=== PATIENT | male | born 1930 | race Caucasian/White ===

== ENCOUNTER 2017-07-02 10:23 | Emergency (ER) | payer MEDICARE, OTHER ==
--- NOTE | 2017-07-02 10:45 | ED Physician Documentation ---
PD HPI Fall - Stated complaint Stated Complaint: GLF/FOREHEAD LAC - Chief complaint Chief Complaint: Trauma Hd/Nk - History obtained from History obtained from: Patient - History of Present Illness Mechanism of injury: Lost balance (has had balance issues, with occasional falls despite walker and cane use.) Fall distance: Standing position Where injury occurred: Home Timing - onset: Today (this morning) Injury(ies) location: Face (fell to left and struck left eyebrow area, left chest and left elbow. No LOC, no headache.), Chest, Left Uppper Extremity (elbow ) Associated symptoms: No: LOC, AMS Worsens with: Movement Contributing factors: Anticoagulated (plavix). No: Intoxicated Similar symptoms before: Has not had sx before Recently seen: Not recently seen Review of Systems Constitutional: denies: Fever Eyes: denies: Loss of vision, Decreased vision, Photophobia Nose: denies: Rhinorrhea / runny nose, Congestion Throat: denies: Sore throat Cardiac: reports: Chest pain / pressure (left side, since falling). denies: Palpitations Respiratory: denies: Dyspnea, Cough GI: denies: Abdominal Pain Skin: denies: Abrasion (s) Musculoskeletal: reports: Extremity pain (left elbow posteriorly). denies: Neck pain, Back pain Psychiatric: denies: Depressed Endocrine: denies: Weight loss, Easy bruising / bleeding Immunocompromised: denies: Immunocompromised, Chemotherapy PD PAST MEDICAL HISTORY - Past Medical History Cardiovascular: Hypertension, NM Respiratory: CPAP use Neuro: CVA Musculoskeletal: Osteoarthritis, Hemiplegia - Past Surgical History Ortho: Knee replacement - Present Medications Home Medications: Ambulatory Orders Medication Instructions Recorded Confirmed Aspirin [Aspirin EC] 81 mg PO DAILY 07/02/17 Baclofen 07/02/17 Clopidogrel [Plavix] 75 mg PO DAILY 07/02/17 Cyanocobalamin (Vitamin B-12) 1 tab PO DAILY 07/02/17 [Vitamin B-12] Escitalopram Oxalate [Lexapro] 2.5 tab PO DAILY 07/02/17 HYDROcod/ACETAM 5/325 [[place] 5/325] 1 tab PO 07/02/17 LORazepam [Lorazepam] 1 mg PO 07/02/17 Melatonin 3 mg PO DAILY PM 07/02/17 buPROPion HCl [Bupropion HCl] 75 mg PO DAILY 07/02/17 - Allergies Allergies/Adverse Reactions: Allergies Allergy/AdvReac Type Severity Reaction Status Date / Time promethazine [From Phenergan] Allergy Unknown Verified 07/02/17 11:30 Sulfa (Sulfonamide Allergy Unknown Verified 07/02/17 11:30 Antibiotics) PD ED PE NORMAL - Vitals Vital signs reviewed: Yes - General General: Alert and oriented X 3, No acute distress, Well developed/nourished - HEENT HEENT: PERRL, EOMI, Pharynx benign, Dentition benign, Other (left eyebrow with 1.5 cm laceration that is still bleeding without bandaid on it. Some bruising of eyelid noted. ) - Neck Neck: Supple, no meningeal sign, No bony TTP, No adenopathy - Cardiac Cardiac: RRR, No murmur - Respiratory Respiratory: No respiratory distress, Clear bilaterally, Other (tender left chest wall without crepitance nor defromity.) - Abdomen Abdomen: Soft, Non tender - Back Back: No spinal TTP - Derm Derm: Normal color, Warm and dry - Extremities Extremities: No tenderness to palpate, Normal ROM s pain, Other (left elbow with some swelling and tenderenss but is able to extend and supinate/pronate. No noted effusion. ) - Neuro Neuro: Alert and oriented X 3, risk and insurance consultant 2-12 intact, No motor deficit, No sensory deficit, Normal speech Eye Opening: Spontaneous Motor: Obeys Commands Verbal: Oriented GCS Score: 15 - Psych Psych: Normal mood Results - Vitals Vitals: Oxygen O2 Source Room air - EKG (time done) 10:38 Rate: Rate (enter#) (52) Rhythm: Sinus bradycardia [place]: Normal Intervals: RBBB QRS: Normal Ischemia: Normal ST segments, Non specific changes. No: ST elevation c/w ischemia, ST depression Compare to prior EKG: Unchanged from prior EKG - Labs Labs: Laboratory Tests 07/02/17 07/02/17 10:50 10:50 WBC 6.0 RBC 4.33 L Hgb 13.5 L Hct 38.9 L MCV 89.9 MCH 31.3 H MCHC 34.8 RDW 14.4 Plt Count 269 MPV 6.8 L Neut # 4.4 Lymph # 1.0 L [place] # 0.5 Eos # 0.2 Baso # 0.0 Absolute Nucleated RBC 0.01 Nucleated RBC % 0.1 Sodium 137 Potassium 4.1 Chloride 103 Carbon Dioxide 23 Anion Gap 11.0 BUN 27 H Creatinine 1.1 Estimated GFR (MDRD) 63 L Glucose 137 H Calcium 9.0 Magnesium 2.1 Total Bilirubin 0.5 AST 31 ALT 24 Alkaline Phosphatase 74 Total Protein 6.7 Albumin 3.9 Globulin 2.8 Albumin/Globulin Ratio 1.4 Lipase 22 - Rads (name of study) head CT Radiology: Prelim report reviewed (no ICH) chest CT Radiology: Prelim report reviewed (no noted fractures nor organ injury) left elbow Radiology: Prelim report reviewed (arthritic but no fractures) Procedures - Laceration (location) left eyebrow Length in cm: 1.5 Wound type: Linear, Into subcut fat, Clean Neurovascular status: Motor intact Anesthesia: Lidocaine 1% with epi Wound Preparation: Irrigated copiously NS Skin layer closure: Nylon, Running, Size #-0 - enter number (5) Other: Patient tolerated well, No complications, Neurovascular intact, Dressing applied, Tetanus UTD Complexity: Simple PD MEDICAL DECISION MAKING - ED course Complexity details: reviewed results, considered differential, d/w patient Departure - Departure Disposition: 01 Home, Self Care Clinical Impression: Fall from slip, trip, or stumble Qualifiers: Encounter type: initial encounter Qualified Code(s): W01.0XXA - Fall on same level from slipping, tripping and stumbling without subsequent striking against object, initial encounter Eyebrow laceration Qualifiers: Encounter type: initial encounter Laterality: left Qualified Code(s): S01.112A - Laceration without foreign body of left eyelid and periocular area, initial encounter Chest wall contusion Qualifiers: Encounter type: initial encounter Laterality: left Qualified Code(s): S20.212A - Contusion of left front wall of thorax, initial encounter Elbow contusion Qualifiers: Encounter type: initial encounter Laterality: left Qualified Code(s): S50.02XA - Contusion of left elbow, initial encounter Contusion of head Qualifiers: Encounter type: initial encounter Contusion of head detail: eyelid Laterality: left Qualified Code(s): S00.12XA - Contusion of left eyelid and periocular area , initial encounter Condition: Stable Record reviewed to determine appropriate education?: Yes Instructions: ED Contusion Chest Wall, ED Laceration Facial Sutr Tape Follow-Up: Tomer Enriquez MD [Primary Care Provider] - Comments: It is okay to wash and shower. Clean off the wound twice a day with soap and water, or peroxide and water. Apply some antibiotic ointment to it to keep it moist. Also to watch for signs of infection such as purulence, redness or increasing pain. Return to your primary care or the ER at the specified time for suture removal. Suture removal 8 or 9 days. Continue usual medications. There are no signs of internal injury or fractures on your x-rays. Discharge Date/Time: 07/02/17 13:54
[2017-07-02] MEDS ORDERED: HYDROcod/ACETAM 5/325 MG TABLET PO STA (11:20)
[2017-07-02] MEDS ORDERED: KETOROLAC 15 MG/ML VIAL IVP STA (11:20)
[2017-07-02] MEDS ORDERED: MORPHINE 2 MG/ML CARPUJECT IVP STA (11:21)
[2017-07-02 11:23] LABS: BASOPHILS % (AUTO) 0.7 %; EOSINOPHILS # (AUTO) 0.2 10^3/uL (0.0-0.7); EOSINOPHILS % (AUTO) 2.6 %; HGB - HEMOGLOBIN 13.5 g/dL (14.0-18.0); LYMPHOCYTES % (AUTO) 15.9 %; MEAN CORPUSCULAR HEMOGLOBIN 31.3 pg (27.0-31.0); MEAN CORPUSCULAR HGB CONC 34.8 g/dL (32.0-36.0); MEAN CORPUSCULAR VOLUME 89.9 fL (80.0-94.0); MEAN PLATELET VOLUME 6.8 fL (7.4-11.4); MONOCYTES # (AUTO) 0.5 10^3/uL (0.0-1.0); MONOCYTES % (AUTO) 8.4 %; NEUTROPHILS # (AUTO) 4.4 10^3/uL (1.5-6.6); NEUTROPHILS % (AUTO) 72.4 %; PLT - PLATELET COUNT 269 10^3/uL (130-450); RED BLOOD COUNT 4.33 10^6/uL (4.70-6.10); RED CELL DISTRIBUTION WIDTH 14.4 % (12.0-15.0)
[2017-07-02 11:32] LABS: ALBUMIN 3.9 g/dL (3.2-5.5); ALBUMIN/GLOBULIN RATIO 1.4 (1.0-2.2); BILIRUBIN,TOTAL 0.5 mg/dL (0.2-1.0); CREATININE 1.1 mg/dL (0.6-1.2); MAGNESIUM 2.1 mg/dL (1.7-2.8); TOTAL PROTEIN 6.7 g/dL (6.7-8.2)
[2017-07-02] MEDS ORDERED: IOPAMIDOL-300 100 ML VIAL ONE (12:09)
[2017-07-02] MEDS ORDERED: IOPAMIDOL-300 100 ML VIAL IVP ONE (12:40)
--- NOTE | 2017-07-02 12:51 | CT Report ---
EXAM: CT HEAD EXAM DATE: 07/02/2017 12:32 PM. CLINICAL HISTORY: Fell today, struck head left forehead. COMPARISON: Brain MRI 09/17/2006. TECHNIQUE: Multiaxial CT images were obtained from the foramen magnum to the vertex. Reformats: Coron al. IV contrast: None. In accordance with CT protocol optimization, one or more of the following dose reduction techniques w ere utilized for this exam: automated exposure control, adjustment of mA and/or KV based on patient s ize, or use of iterative reconstructive technique. FINDINGS: Parenchyma: No intraparenchymal hemorrhage. No evidence of mass, midline shift, or CT findings of acu te infarction. Meza-white differentiation is distinct. Diffuse chronic microangiopathic white matter changes are evident. 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 Extraaxial Spaces: Normal for age. No subdural or epidural collections identified. Ventricles: The ventricles and cortical sulci are enlarged, consistent with age-related tissue loss. Sinuses and orbits: Imaged paranasal sinuses, orbits, and mastoids show no significant abnormality. Bones: No evidence of fracture or calvarial defect. Other: Left periorbital soft tissue edema. IMPRESSION: 1. Left periorbital soft tissue edema. 2. Generalized age-related cortical atrophic changes without evidence of acute intracranial abnormali ty. 3. 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 [facility] Referring Provider Line: [phone] SITE ID: [id number]
--- NOTE | 2017-07-02 13:01 | XRAY Report ---
EXAM: LEFT ELBOW RADIOGRAPHY EXAM DATE: 07/02/2017 12:47 PM. CLINICAL HISTORY: Fell today, pain in left elbow with ROM. COMPARISON: None. TECHNIQUE: 3 views. FINDINGS: Bones: Normal. No fractures or bone lesions. Joints: Left elbow joint effusion. No subluxation. Coronoid and olecranon spurring. Soft Tissues: Calcifications adjacent to lateral and medial epicondyles compatible with tendinosis. Antecubital IV noted. IMPRESSION: 1. Left elbow joint effusion. 2. No fracture evident. 3. Common extensor and flexor tendinosis. [facility] Referring Provider Line: [phone] SITE ID: [id number]
--- NOTE | 2017-07-02 13:12 | CT Report ---
EXAM: CT CHEST EXAM DATE: 07/02/2017 12:33 PM. CLINICAL HISTORY: Fell today and pain left chest. COMPARISONS: CT abdomen and pelvis 07/29/2011. TECHNIQUE: Routine helical CT imaging was performed through the chest. IV contrast: 80 cc Isovue 300. Reconstructions: Coronal and sagittal. In accordance with CT protocol optimization, one or more of the following dose reduction techniques w ere utilized for this exam: automated exposure control, adjustment of mA and/or KV based on patient s ize, or use of iterative reconstructive technique. FINDINGS: Lungs/Pleura: Minimal bibasilar atelectasis or scarring. No consolidation or worrisome pulmonary nodu les. No pleural effusion or pneumothorax. Mediastinum: Mild cardiomegaly. No pericardial effusion. No adenopathy. No aortic aneurysm or evidenc e of dissection. Pulmonary vasculature demonstrates no significant abnormality. Bones: No acute fracture. Mild degenerative change. Visualized Abdomen: Partially imaged splenic cyst is without evidence of significant change from prio r. Other: None. IMPRESSION: No acute abnormality in the chest. No fracture. [facility] Referring Provider Line: [phone] SITE ID: [id number]
[2017-07-02 13:53] VITALS: BP 136/76
== END 2017-07-02 13:54 | disposition home or self-care (01) ==
LOC: ED 10:23
DX: S01.112A Laceration without foreign body of left eyelid and periocular area, initial encounter (principal); S00.12XA Contusion of left eyelid and periocular area, initial encounter; S50.02XA Contusion of left elbow, initial encounter; S20.212A Contusion of left front wall of thorax, initial encounter; W01.0XXA Fall on same level from slipping, tripping and stumbling without subsequent striking against object, initial encounter; Y92.019 Unspecified place in single-family (private) house as the place of occurrence of the external cause; I45.10 Unspecified right bundle-branch block; R94.31 Abnormal electrocardiogram [ECG] [EKG]; I10 Essential (primary) hypertension; I25.2 Old myocardial infarction; Z86.73 Personal history of transient ischemic attack (TIA), and cerebral infarction without residual deficits; M19.90 Unspecified osteoarthritis, unspecified site; Z79.82 Long term (current) use of aspirin
CPT/HCPCS: 12011; 36415; 70450; 71260; 73080; 80053; 83690; 83735; 85025; 93005; 96374; 96375; 99284; Q9967

== ENCOUNTER 2018-03-11 10:54 | Emergency (ER) | payer MEDICARE, OTHER ==
[2018-03-11] MEDS ORDERED: METHYLNALTREXONE 12 MG/0.6 ML VIAL SUBQ ONE (12:16)
[2018-03-11] MEDS ORDERED: LACTULOSE 10 GM /15 ML UDC PO STA (12:16)
[2018-03-11] MEDS ORDERED: MAGNESIUM CITRATE 296 ML BOTTLE PO STA (12:17)
--- NOTE | 2018-03-11 12:19 | ED Physician Documentation ---
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 He also has a history of hernia repair, heart attack and stroke. For the last 2-1/2 weeks he has had problems with constipation with abdominal fullness and now 3 days of right lower quadrant pain. He is tried milk of magnesia and prune juice with only small amounts of bowel output. He denies vomiting. There is no fever. Pain is not severe.) Review of Systems Ten Systems: 10 systems reviewed and negative Constitutional: denies: Fever, Chills, Fatigue Respiratory: denies: Dyspnea, Cough GI: reports: Abdominal Swelling, Constipation, Bloody / black stool (Some bright red blood per rectum) PD PAST MEDICAL HISTORY - Past Medical History Past Medical History: Yes Cardiovascular: Hypertension, [place] Respiratory: CPAP use Musculoskeletal: Osteoarthritis, Hemiplegia - Past Surgical History Ortho: Knee replacement - Present Medications Home Medications: Ambulatory Orders Medication Instructions Recorded Confirmed Aspirin [Aspirin EC] 81 mg PO DAILY 07/02/17 Baclofen 07/02/17 Clopidogrel [Plavix] 75 mg PO DAILY 07/02/17 Cyanocobalamin (Vitamin B-12) 1 tab PO DAILY 07/02/17 [Vitamin B-12] Escitalopram Oxalate [Lexapro] 2.5 tab PO DAILY 07/02/17 HYDROcod/ACETAM 5/325 [[place] 5/325] 1 tab PO 07/02/17 LORazepam [Lorazepam] 1 mg PO 07/02/17 Melatonin 3 mg PO DAILY PM 07/02/17 buPROPion HCl [Bupropion HCl] 75 mg PO DAILY 07/02/17 Polyethylene Glycol 3350 [Miralax] 17 gm PO DAILY PRN #1 bottle 03/11/18 - Allergies Allergies/Adverse Reactions: Allergies Allergy/AdvReac Type Severity Reaction Status Date / Time promethazine [From Phenergan] Allergy Unknown Verified 07/02/17 11:30 Sulfa (Sulfonamide Allergy Unknown Verified 07/02/17 11:30 Antibiotics) - Social History Does the pt smoke?: No Smoking Status: Never smoker - Family History Family history: reports: Non contributory PD ED PE NORMAL - Vitals Vital signs reviewed: Yes - General General: Alert and oriented X 3, No acute distress - HEENT HEENT: PERRL, EOMI - Neck Neck: Supple, no meningeal sign, No bony TTP - Cardiac Cardiac: RRR, No murmur - Respiratory Respiratory: No respiratory distress, Clear bilaterally - Abdomen Abdomen: Other (Soft with some right sided fullness and right lower quadrant tenderness, normal to slightly diminished bowel tones but definitely present.) - Male Male : Other (No stool in the vault or gross blood on rectal exam) - Back Back: No CVA TTP, No spinal TTP - Derm Derm: Normal color, Warm and dry - Extremities Extremities: No edema, No calf tenderness / cord - Neuro Neuro: Alert and oriented X 3, Normal speech Results - Vitals Vitals: Vital Signs - 24 hr 03/11/18 11:06 Temperature 36.2 C L Heart Rate 93 Respiratory 18 Rate Blood Pressure 141/102 H O2 Saturation 95 Oxygen O2 Source Room air - Labs Labs: Laboratory Tests 03/11/18 03/11/18 12:41 12:41 WBC 5.0 RBC 4.55 L Hgb 14.5 Hct 41.9 L MCV 92.2 MCH 31.8 H MCHC 34.5 RDW 13.2 Plt Count 307 MPV 6.4 L Neut # (Auto) 3.4 Lymph # (Auto) 1.0 L [place] # (Auto) 0.5 Eos # (Auto) 0.1 Baso # (Auto) 0.0 Absolute Nucleated RBC 0.00 Nucleated RBC % 0.0 Sodium 135 Potassium 4.0 Chloride 101 Carbon Dioxide 25 Anion Gap 9.0 BUN 11 Creatinine 1.1 Estimated GFR (MDRD) 63 L Glucose 101 H Calcium 9.3 Total Bilirubin 1.3 H AST 30 ALT 24 Alkaline Phosphatase 81 Total Protein 7.5 Albumin 4.5 Globulin 3.0 Albumin/Globulin Ratio 1.5 Lipase 34 - Rads (name of study) CT A/P Radiology: EMP read contemporaneously (Diverticulosis without acute disease) PD MEDICAL DECISION MAKING - ED course ED course: 87-year-old gentleman presents with right-sided abdominal pain and constipation. He has a benign exam for the most part and labs and workup are reassuring and he is treated for constipation here. He has not had a colonoscopy in many years and is advised to discuss this with his doctor in light of his advanced age. Departure - Departure Disposition: Home, Self Care Clinical Impression: Abdominal pain Qualifiers: Abdominal location: generalized Qualified Code(s): R10.84 - Generalized abdominal pain Constipation Qualifiers: Constipation type: drug induced constipation Qualified Code(s): K59.03 - Drug induced constipation Condition: Good Record reviewed to determine appropriate education?: Yes Instructions: ED Constipation, ED Abdominal Pain Unkn Cause Prescriptions: Polyethylene Glycol 3350 [Miralax] 17 gm PO DAILY PRN #1 bottle PRN Reason: Constipation Comments: Return for any new or worsening symptoms. Follow-up with Dr. Enriquez, discuss colonoscopy, again I do not necessarily recommend it based on your age but it deserves a discussion. Also recheck blood pressure, it was about 140/100 today in the emergency department.
[2018-03-11] MEDS ORDERED: IOPAMIDOL-300 100 ML VIAL ONE (12:22)
[2018-03-11 12:47] LABS: BASOPHILS % (AUTO) 0.9 %; EOSINOPHILS # (AUTO) 0.1 10^3/uL (0.0-0.7); EOSINOPHILS % (AUTO) 1.5 %; HGB - HEMOGLOBIN 14.5 g/dL (14.0-18.0); LYMPHOCYTES % (AUTO) 19.1 %; MEAN CORPUSCULAR HEMOGLOBIN 31.8 pg (27.0-31.0); MEAN CORPUSCULAR HGB CONC 34.5 g/dL (32.0-36.0); MEAN CORPUSCULAR VOLUME 92.2 fL (80.0-94.0); MEAN PLATELET VOLUME 6.4 fL (7.4-11.4); MONOCYTES # (AUTO) 0.5 10^3/uL (0.0-1.0); MONOCYTES % (AUTO) 10.3 %; NEUTROPHILS # (AUTO) 3.4 10^3/uL (1.5-6.6); NEUTROPHILS % (AUTO) 68.2 %; PLT - PLATELET COUNT 307 10^3/uL (130-450); RED BLOOD COUNT 4.55 10^6/uL (4.70-6.10); RED CELL DISTRIBUTION WIDTH 13.2 % (12.0-15.0)
[2018-03-11 13:01] LABS: ALBUMIN 4.5 g/dL (3.2-5.5); ALBUMIN/GLOBULIN RATIO 1.5 (1.0-2.2); BILIRUBIN,TOTAL 1.3 mg/dL (0.2-1.0); CALCIUM 9.3 mg/dL (8.5-10.3); CREATININE 1.1 mg/dL (0.6-1.2); TOTAL PROTEIN 7.5 g/dL (6.7-8.2)
--- NOTE | 2018-03-11 14:05 | CT Report ---
Reason: IV only, RLQ pain Procedure Date: 03/11/2018 Accession Number: [id number] / [id number] Procedure: CT - Abdomen/Pelvis W/ CPT Code: FULL RESULT: EXAM: CT ABDOMEN AND PELVIS EXAM DATE: 03/11/2018 01:30 PM. CLINICAL HISTORY: IV only, RLQ pain. COMPARISONS: 07/29/2011. TECHNIQUE: Routine helical CT imaging was performed through the abdomen and pelvis. IV contrast: ISOVUE 300 100mL. Enteric contrast: No. Reconstructions: Coronal and sagittal. In accordance with CT protocol optimization, one or more of the following dose reduction techniques were utilized for this exam: automated exposure control, adjustment of mA and/or KV based on patient size, or use of iterative reconstructive technique. FINDINGS: Lung Bases: Bilateral basilar scarring, left pleural thickening Liver: Fatty infiltrated Gallbladder/Bile Ducts: Unremarkable. Spleen: 3.3 cm cyst stable Pancreas: Normal. Adrenal Glands: Normal. Kidneys: Normal. No masses or hydronephrosis. Peritoneal Cavity/Bowel: Diverticulosis most prominent in the sigmoid colon. No free fluid, free air or adenopathy. No masses or acute inflammatory process. The appendix is well visualized and normal. Pelvic Organs: Fat-containing right inguinal hernia The bladder unremarkable. Prostatic enlargement Vasculature: No aneurysms or other significant abnormality. Bones: DJD spine Other: None. IMPRESSION: 1. Diverticulosis most prominent in the sigmoid colon without significant inflammatory changes. 2. Normal appendix [facility]
[2018-03-11 14:26] VITALS: BP 144/82
[2018-03-11] MEDS ORDERED: IOPAMIDOL-300 100 ML VIAL IVP ONE (14:36)
== END 2018-03-11 14:30 | disposition home or self-care (01) ==
LOC: ED 10:54
DX: R10.84 Generalized abdominal pain (principal); K59.03 Drug induced constipation; I10 Essential (primary) hypertension; I25.2 Old myocardial infarction; G81.90 Hemiplegia, unspecified affecting unspecified side; Z79.82 Long term (current) use of aspirin
CPT/HCPCS: 36415; 74177; 80053; 83690; 85025; 96372; 99283; A9270; J2212; Q9967

== ENCOUNTER 2019-10-02 15:33 | Outpatient (CLI) | payer MEDICARE, OTHER ==
--- NOTE | 2019-10-17 18:51 | SLEEP CARE CONSULTATION ---
Information from patient questionnaire entered by Maggie Valiente. I have reviewed and concur with the information entered by Maggie Valiente. This document represents the service I personally performed and the decisions made by me, Segundo Townsend MD, [facility]. History of Present Illness Service Date and Time: 10/02/2019 1533 Reason for Visit: Previously diagnosed sleep apnea (severe CHRIS, AHI 47.3), sleep apnea on CPAP therapy, Re-establish care Chief Complaint: reports: Insomnia, Unrefreshed sleep, Snoring, Observed pauses in breathing, Fatigue, Frequent awakenings at night Duration of Symptoms: 11/2006 Usual bedtime: 2849-2941 Time it takes to fall asleep: 30 minutes Snores at night: Yes (without CPAP) Observed to quit breathing while asleep: Yes (without CPAP) Sleeps alone due to snoring: No Number of times waking at night: 2-4 Reasons for waking at night: reports: Choking (without CPAP), Snoring (without CPAP), Pain, Bathroom Toss, Turn, or Twitch while sleeping: Yes Recalls having dreams: Yes (sometimes) Usually gets out of bed at: 1267-5778 Feels refreshed in the morning: No Morning headache: No Sleepy or fatigued during the day: Yes (30% of the time) Ever fallen asleep while driving: No (do not drive) Takes day naps: Yes (sometimes) Dreams during day naps: Yes Prior sleep studies: Yes Year and Where: 2011 [facility] [place] [facility] Additional HPI information: I had the pleasure of seeing Mr. Garcia today regarding obstructive sleep apnea- hypopnea. As you know, he is a 89 year old gentleman who was diagnosed with the sleep-disordered breathing here in 2006 and again in 2011. The AHI was 47.3. He was prescribed a CPAP device set at 13 cmH2O. He uses every night and all night. The compliance data show usage in 90 out of the past 90 nights, averaging 7.4 hours a night. The residual AHI is 10.7 and average time in large leak per day is 6 minutes. He wears a full face mask. He gets his supplies from [employer]. He finds the treatment beneficial. CPAP Compliance Data - Data Reviewed with Patient Average duration of nightly device use: 7h 32m Compliance rate %: 97.8 Current pressure setting (cmH2O): 13 Humidity settin Heated hose settin Average residual AHI: 10.4 Average large leak: 8m 31s Subjective Initial [place] Sleepiness Scale score: 9 Past Medical History Past Medical History: reports: Arthritis, Coronary Heart Disease, Anxiety, Impotence, Depression, Other (back problems, numbness in hands/wrists/feet, high cholesterol, left foot drop) Social History The patient's occupation is retired. Patient is and lives in [place]. Have you smoked in the past 12 months: No Alcohol use: No Caffeine use: Yes Caffeine amount and frequency: 2 cups coffee, 1 cup tea Family History Family history of sleep disordered breathing: Yes (son (insomnia)) Family Hx Sleep Apnea: Sibling: Snoring Allergies and Home Medications Drug allergies reviewed: Yes Home medication list reviewed: Yes Review of Systems Weight gain over past 5 years: 5 Cardiovascular: reports: leg or foot swelling, have to sleep sitting up (sometimes) Gastrointestinal: reports: nausea (sometimes), diarrhea (sometimes) Urinary: reports: frequency, urgency, impotence Neurological: reports: headaches (infrequent), gait or balance problems Psychiatric: reports: anxiety, depression Ear/Nose/Throat: reports: nasal congestion (due to CPAP), dry mouth/throat (with CPAP), hoarseness Endocrine: reports: sluggishness (sleep related), too hot or cold Musculoskeletal: reports: joint pain, neck pain (sometimes), back pain (severe 50-60%), joint swelling (knees/feet), muscle pain or cramping, mobility problems Physical Exam Height: 5 ft 10 in Impression and Plan IMPRESSION: 1. Obstructive Sleep Apnea-Hypopnea Syndrome, severe, as previously diagnosed. The patient has had good treatment compliance. The current pressure setting appears slightly ineffective but comfortable. The patient experiences improvement on the treatment. Because the CPAP is now older than the useful l theodore of 5 years, I will order the patient a new one and make it an autoCPAP set between 12 and 16 cmH2O. Plan: 1. Prescription made for a new autoCPAP, heated humidifier, and related supplies. 2. Return for follow up after one month on the new machine. 3. Consider repeating the manual CPAP/BiPAP titration study. Visit Type: Telehealth Video Video Type: Punchh Patient Location: Home Location of Provider: Home Patient agrees and consents to this telehealth visit type: Yes Patient agrees to have their insurance billed: Yes Time Spent with Patient (minutes): 15 Provider Statement: I spent 100% of the Telehealth Video Call with the patient with greater than 50% spent counseling the patient and coordination of care.
== END 2019-10-02 15:34 | disposition home or self-care (01) ==
LOC: SC 15:33
PROVIDERS: ATTEND Internal Medicine Pulmonary Disease
DX: G47.33 Obstructive sleep apnea (adult) (pediatric) (principal)

== ENCOUNTER 2020-08-19 08:00 | Outpatient (CLI) | payer MEDICARE, OTHER ==
[2020-08-19 17:42] LABS: BASOPHILS % (AUTO) 0.8 %; EOSINOPHILS # (AUTO) 0.2 10^3/uL (0.0-0.7); EOSINOPHILS % (AUTO) 4.2 %; HGB - HEMOGLOBIN 13.5 g/dL (14.0-18.0); LYMPHOCYTES # (AUTO) 0.9 10^3/uL (1.5-3.5); LYMPHOCYTES % (AUTO) 23.5 %; MEAN CORPUSCULAR HEMOGLOBIN 33.4 pg (27.0-31.0); MEAN CORPUSCULAR HGB CONC 34.6 g/dL (32.0-36.0); MEAN CORPUSCULAR VOLUME 96.5 fL (80.0-94.0); MEAN PLATELET VOLUME 8.8 fL (7.4-11.4); MONOCYTES # (AUTO) 0.4 10^3/uL (0.0-1.0); NEUTROPHILS # (AUTO) 2.3 10^3/uL (1.5-6.6); NEUTROPHILS % (AUTO) 61.5 %; PLT - PLATELET COUNT 283 10^3/uL (130-450); RED BLOOD COUNT 4.04 10^6/uL (4.70-6.10); RED CELL DISTRIBUTION WIDTH 12.6 % (12.0-15.0); WHITE BLOOD COUNT 3.8 x10^3/uL (4.8-10.8)
[2020-08-19 18:18] LABS: THYROID STIMULATING HORMONE 2.9 uIU/mL (0.34-5.60)
[2020-08-19 18:27] LABS: ALBUMIN 4.1 g/dL (3.2-5.5); ALBUMIN/GLOBULIN RATIO 1.6 (1.0-2.2); ALKALINE PHOSPHATASE 65 IU/L (42-121); ALT ALANINE AMINOTRANSFERASE 20 IU/L (10-60); AST ASPARTATE AMINOTRANSFERASE 27 IU/L (10-42); BUN - BLOOD UREA NITROGEN 21 mg/dL (6-20); CALCIUM 9.2 mg/dL (8.5-10.3); CARBON DIOXIDE - CO2 26 mmol/L (21-32); CHLORIDE 102 mmol/L (101-111); CHOL/HDL RATIO 6.2 (<5.0); CHOLESTEROL 217 mg/dL; CREATININE 1.2 mg/dL (0.6-1.2); GFR - MDRD 57 (>89); GLUCOSE 111 mg/dL (70-100); HDL CHOLESTEROL 35 mg/dL; LDL CHOLESTEROL,CALCULATED 114 mg/dL; LDL/HDL RATIO 3.3 (<3.6); POTASSIUM 4.5 mmol/L (3.5-5.0); SODIUM 136 mmol/L (135-145); TOTAL PROTEIN 6.7 g/dL (6.7-8.2); TRIGLYCERIDES 340 mg/dL; VLDL CHOLESTEROL 68 mg/dL
== END 2020-08-19 23:59 | disposition home or self-care (01) ==
LOC: LAB.WCP 08:00
PROVIDERS: ATTEND Nurse Practitioner Family
DX: I63.9 Cerebral infarction, unspecified (principal); I10 Essential (primary) hypertension; I25.10 Atherosclerotic heart disease of native coronary artery without angina pectoris
CPT/HCPCS: 36415; 80053; 80061; 83721; 84443; 85025